=== PATIENT | male | born 1955 | race Caucasian/White ===

== ENCOUNTER 2016-11-23 22:55 | Emergency (ER) | payer OTHER, MEDICARE ==
[~2016-11-23 22:55] MED LIST: EPINEPHrine HCL (1:10,000) 1 MG/10 ML SYRINGE IV ONE
--- NOTE | 2016-11-23 23:35 | PD ---
HPI Chief Complaint: Code Blue Time Seen by Provider: 23:33 Travel History International Travel<30 days: No (unable to determine) Contact w/Intl Traveler<30days: No History of Present Illness HPI The patient is approximately 63 years old. He was found unresponsive at home and EMS was activated. On scene they encountered ventricular fibrillation and patient was defibrillated. The patient then entered asystole. He was transferred to a back board and CPR was initiated. At about the same time intubation was attempted however failed. The patient was then found to be in atrial fibrillation again and was defibrillated again to no avail. Patient received epinephrine with ongoing chest compressions. After a second dose of epinephrine was administered the patient had a return of spontaneous circulation. Peripheral pulses were observed. EMS began pacing the patient transcutaneously as he began to bradycardia down. Oropharyngeal airway with bag valve mask ventilation was the only form oxygenation/ventilation en route. When the patient arrived to the ER his pupils were fixed and dilated and his GCS was 3. No pulse was appreciable at any point during the patient's ER evaluation. The patient was intubated upon arrival. At 11:06 PM the patient was pronounced after transthoracic ultrasound revealed a global asystole. [facility] Past Medical History Medical History: Unable to Obtain Social History Tobacco Use: No (unable to assess) Physical Exam Exam Limitations: Clinical Condition Narrative GENERAL: Well-nourished well-developed approximately 53-year-old male SKIN: Warm and dry. HEAD: Atraumatic. Normocephalic. EYES: Pupils fixed and dilated. ENT: No nasal bleeding or discharge. Mucous membranes pink and moist. NECK: Trachea midline. No JVD. CARDIOVASCULAR: Asystole. RESPIRATORY: Breath sounds palpable audible after intubation. GASTROINTESTINAL: Abdomen soft, non-tender, nondistended. Hepatic and splenic margins not palpable. MUSCULOSKELETAL: No obvious deformities. No clubbing. No cyanosis. No edema. NEUROLOGICAL: GCS 3. Pupils fixed dilated Psychiatric: unassessable [facility] Medical Decision Making Medical Screen Exam Complete: Yes Emergency Medical Condition: Yes Medical Record Reviewed: Yes Differential Diagnosis Cardiopulmonary arrest, hypoxic injury, and organ injury Narrative Course Please for the history of present illness. Family was notified of expiration shortly after. Critical Care Narrative Aggregate critical care time was 35 minutes. Time to perform other separately billable procedures was not included in the critical care time. My time did not include minutes spent treating any other patients simultaneously or on activities that did not directly contribute to the patient's treatment. The services I provided to this patient were to treat and/or prevent clinically significant deterioration that could result in: Pulmonary pulmonary arrest, I provided critical care services requiring my management, as noted below: Chart data review, documentation time, medication orders and management, vital sign assessments/reviewing monitor data, ordering and reviewing lab tests, ordering and interpreting/reviewing x-rays and diagnostic studies, care of the patient and discussion of the patient with the admitting physicians. Procedures Procedure Narrative After the risks and benefits were discussed the following procedure was performed: INTUBATION: The patient was put in optimal position for the procedure. No RSI medication was required The patient was intubated with a 7.5 cuffed endotracheal tube. Tube placement was confirmed by visualization of the tube and balloon passing through the cords, capnometry and Breath sounds were equal and well aerated bilaterally postintubation. No breath sounds over stomach. Patient tolerated procedure well. Diagnosis Primary Impression: Cardiopulmonary arrest Additional Impression: Additional Instructions: Not applicable Med/Other Pt SpecificInfo: Other Disposition: 20 Condition: Stable Jaya Velarde MD Nov 23, 2016 23:35
== END 2016-11-23 23:06 | disposition expired ==
LOC: NEPE 22:55 → EDBD 22:55 → NEPE 23:06
DX: I46.9 Cardiac arrest, cause unspecified (principal)
CPT/HCPCS: 31500; 92950; 99285; J0171